=== PATIENT | female | born 1990 | race Caucasian/White ===

== ENCOUNTER 2020-04-24 07:05 | Inpatient (IN) | payer OTHER, SELFPAY ==
[2020-04-24] VITALS (89 sets, daily range): BP systolic 106–139; BP diastolic 49–96; PULSE 58–118; RESP 16; TEMP 36.7–36.8; O2SAT 95–100; BMI 38.0
--- NOTE | 2020-04-24 07:14 | PM.IMHP ---
H&P: HPI History of Present Illness Chief complaint: Induction of Labor Narrative: Ingrid Huerta is a 29 year old female 040 whose last menstrual period was 07/17/2019, whose EDC is 04/22/2020, presents at 40 and half weeks gestation for induction of labor. Her has been uncomplicated. She does take levothyroxine as an been euthyroid throughout the . Cervix is favorable. Her blood pressures have been mildly elevated at the end of Review of Systems Review of Systems: All systems reviewed & are unremarkable except as noted in HPI and below PMFSH Family History Family History Grandparent Bone cancer Diabetes mellitus Carcinoid tumor of stomach Social History Social History Substance use: never Spiritual care concerns: No Meds Home Medications and Allergies Home Medications Medication Instructions Recorded Confirmed Type PNV cmb#95-ferrous fumarate-FA 1 tablet PO DAILY 03/25/20 03/25/20 History [] levothyroxine 50 mcg PO DAILY 03/25/20 03/25/20 History Allergies Allergy/AdvReac Type Severity Reaction Status Date / Time Penicillins Allergy Unknown HIVES Verified 03/25/20 14:36 Exam Const: General: no acute distress Eyes: General: appearance normal, both eyes and all related structures Neck: Neck: supple and no JVD Thyroid: thyroid normal Resp: Effort & Inspection: normal respiratory effort Auscultation: clear to auscultation bilaterally Cardio: Rate: regular rate Rhythm: regular rhythm GI: Inspection: non-distended GI Palp: Yes Soft to palpation, No Tenderness to palpation present (GI) and No Guarding due to palpation present (GI) Auscultation: normal bowel sounds : General: Yes bladder normal to palpation External Female Exam: normal external appearance Speculum Exam - Vagina: normal vaginal discharge and No vaginal bleeding Speculum Exam - Cervix: nontender Bimanual exam- vagina & uterus: bladder normal to palpation and No Cervical tenderness present OB/external & speculum: No vaginal bleeding Skin: General skin exam: no rashes or lesions noted Extrem: General: normal to inspection and no edema Psych: Mental Status: mental status grossly normal Affect: normal affect Assessment and Plan Additional Plan Impression: Term with favorable cervix Plan medical induction of labor
--- NOTE | 2020-04-24 07:29 | WPDOBADMIT ---
Obstetrics - Admit Note Admission Note: record reviewed. No pertinent additions to the history and/or any subsequent changes in the physical findings that are not consistent with the expected course of the were found. Additions to the history and/or subsequent changes in the physical findings follow. None. cx /-1 arom clear fhts reassuring
[2020-04-24] MEDS: LACTATED RINGERS 1,000 ML 125 ML IV CONT ×3 (07:55→13:03)
[2020-04-24] MEDS: OXYTOCIN 30 UNITS/NS 500 ML 30 UNITS/500 ML BAG 6 UNITS IV CONT ×2 (07:58→17:55)
[2020-04-24 08:02] LABS: Basophils Percent Auto 0.3 % (0.2-1.2); Eosinophils Absolute Auto 0.1 K/mm3 (0-0.3); Eosinophils Percent Auto 0.6 % (0-4.4); Hematocrit 40.8 % (37.0-47.0); Hemoglobin 13.6 g/dL (12.0-15.0); Immature Granulocyte Absolute 0.07 K/mm3 (0.00-0.031); Immature Granulocyte Percent A 0.6 % (0-0.5); Lymphocytes Absolute Auto 1.71 K/mm3 (0.9-3.2); Lymphocytes Percent Auto 14.5 % (18.3-44.2); Mean Corpuscular HGB Conc 33.3 g/dl (32-36); Mean Corpuscular Hemoglobin 30.8 pg (26-34); Mean Corpuscular Volume 92.3 fl (80-100); Mean Platelet Volume 9.9 fl (7.4-10.4); Monocytes Absolute Auto 0.8 K/mm3 (0.1-0.6); Monocytes Percent Auto 6.8 % (2.6-8.5); Neutrophils Absolute Auto 9.1 K/mm3 (1.3-6.7); Neutrophils Percent Auto 77.2 % (45.5-73.1); Platelet Count Result 303 k/mm3 (150-375); Red Blood Count 4.42 M/mm3 (4.2-5.4); Red Cell Distribution Width 12.7 % (11.5-14.5); White Blood Count 11.8 K/mm3 (4.5-10.0)
[2020-04-24] MEDS: CLINDAMYCIN 900 MG/NS 50 ML 900 MG/50 ML PIGGYBACK 50 MG IVPB ×2 (08:52→16:34)
[2020-04-24 10:24] LABS: Rapid Plasma Reagin Non-Reactive (NonReactive)
--- NOTE | 2020-04-24 11:58 | PM.OBPNVD ---
OB - PN: Subj Subjective Date/time seen: 04/24/20 11:58 fhts reassuring requsting epidural OB - PN: Obj Data Labs CBC & Chem 7: 04/24/20 07:51 Labs: Laboratory Results - last 24 hr 04/24/20 04/24/20 04/24/20 07:51 07:51 07:51 WBC 11.8 H RBC 4.42 Hgb 13.6 Hct 40.8 MCV 92.3 MCH 30.8 MCHC 33.3 RDW 12.7 Plt Count 303 MPV 9.9 Immature Gran % (Auto) 0.6 H Neut % (Auto) 77.2 H Lymph % (Auto) 14.5 L [place] % (Auto) 6.8 Eos % (Auto) 0.6 Baso % (Auto) 0.3 Lymph # (Auto) 1.71 [place] # (Auto) 0.8 H Eos # (Auto) 0.1 Baso # (Auto) 0.0 Abs Immat Gran (auto) 0.07 H Absolute Neuts (auto) 9.1 H Absolute Nucleated RBC 0.0 Nucleated RBC % 0.0 RPR Non-reactive Blood Type B Positive Antibody Screen Negative OB - PN A/P Time Spent With Patient Time: Total time spent is greater than 50% in coordination of care (as documented) at patient's floor/unit and/or counseling patient:
--- NOTE | 2020-04-24 12:36 | WPDANESEPPF ---
Anes - Initial Pre Proc Eval Date/Time: 04/24/20 12:36 Surgeon: Lennox Matt MD Pre Op Diagnosis: Induction of Labor Patient Data Age: 29 Gender: F Height: 1.7 m Weight: 110 kg Last Vital Signs Pulse 73 04/24/20 12:30 BP 128/77 04/24/20 12:30 Pulse Ox 100 04/24/20 12:34 Allergies Allergy/AdvReac Type Severity Reaction Status Date / Time Penicillins Allergy Unknown HIVES Verified 03/25/20 14:36 Home Medications Medication Instructions Recorded Confirmed Type PNV cmb#95-ferrous fumarate-FA 1 tablet PO DAILY 03/25/20 03/25/20 History [] levothyroxine 50 mcg PO DAILY 03/25/20 03/25/20 History Laboratory Tests 04/24/20 04/24/20 04/24/20 07:51 07:51 07:51 WBC 11.8 K/mm3 H K/mm3 (4.5-10.0) RBC 4.42 M/mm3 M/mm3 (4.2-5.4) Hgb 13.6 g/dL g/dL (12.0-15.0) Hct 40.8 % % (37.0-47.0) MCV 92.3 fl fl (80-100) MCH 30.8 pg pg (26-34) MCHC 33.3 g/dl g/dl (32-36) RDW 12.7 % % (11.5-14.5) Plt Count 303 k/mm3 k/mm3 (150-375) MPV 9.9 fl fl (7.4-10.4) Immature Gran % (Auto) 0.6 % H % (0-0.5) Neut % (Auto) 77.2 % H % (45.5-73.1) Lymph % (Auto) 14.5 % L % (18.3-44.2) [place] % (Auto) 6.8 % % (2.6-8.5) Eos % (Auto) 0.6 % % (0-4.4) Baso % (Auto) 0.3 % % (0.2-1.2) Lymph # (Auto) 1.71 K/mm3 K/mm3 (0.9-3.2) [place] # (Auto) 0.8 K/mm3 H K/mm3 (0.1-0.6) Eos # (Auto) 0.1 K/mm3 K/mm3 (0-0.3) Baso # (Auto) 0.0 K/mm3 K/mm3 (0.0-0.1) Abs Immat Gran (auto) 0.07 K/mm3 H K/mm3 (0.00-0.031) Absolute Neuts (auto) 9.1 K/mm3 H K/mm3 (1.3-6.7) Absolute Nucleated RBC 0.0 K/mm3 K/mm3 (0.0-0.012) Nucleated RBC % 0.0 % % (0.0-0.2) RPR Non-reactive (NonReactive) Blood Type B Positive Antibody Screen Negative Patient hx anesthesia problems: none Family hx anesthesia problems: none PMFSH Family History Family History Grandparent Bone cancer Diabetes mellitus Carcinoid tumor of stomach Social History Social History Smoking status: Never smoker Substance use: never Spiritual care concerns: No Anes - Eval Final PreProcedure Day of Procedure 04/24/20 12:36 Patient weight: obese Heart: regular rate and rhythm Lungs: clear to auscultation and normal air movement Airway: Mallampati scale class II Neurological: alert and oriented Last oral intake: >/= 8 hours ASA classification: II Emergent: no Anesthetic plan: proceed Anesthesia type and monitoring: regional epidural Informed Consent: The patient's anesthetic plan and its attendant risks and benefits were discussed with the patient/family/POA. Questions were solicited and answers provided to the satisfaction of the patient/family/POA.
--- NOTE | 2020-04-24 16:21 | PM.OBPNVD ---
OB - PN: Subj Subjective Date/time seen: 04/24/20 16:21 cx complete/fhts reassuring OB - PN: Obj Data Labs CBC & Chem 7: 04/24/20 07:51 Labs: Laboratory Results - last 24 hr 04/24/20 04/24/20 04/24/20 07:51 07:51 07:51 WBC 11.8 H RBC 4.42 Hgb 13.6 Hct 40.8 MCV 92.3 MCH 30.8 MCHC 33.3 RDW 12.7 Plt Count 303 MPV 9.9 Immature Gran % (Auto) 0.6 H Neut % (Auto) 77.2 H Lymph % (Auto) 14.5 L [place] % (Auto) 6.8 Eos % (Auto) 0.6 Baso % (Auto) 0.3 Lymph # (Auto) 1.71 [place] # (Auto) 0.8 H Eos # (Auto) 0.1 Baso # (Auto) 0.0 Abs Immat Gran (auto) 0.07 H Absolute Neuts (auto) 9.1 H Absolute Nucleated RBC 0.0 Nucleated RBC % 0.0 RPR Non-reactive Blood Type B Positive Antibody Screen Negative OB - PN A/P Time Spent With Patient Time: Total time spent is greater than 50% in coordination of care (as documented) at patient's floor/unit and/or counseling patient:
--- NOTE | 2020-04-24 17:46 | PM.OBPRVD ---
OB - Delivery Note Procedure Delivery date: 04/24/20 Intrapartal events: None Induction method: AROM Delivery augmentation: pitocin Delivery monitor: external FHT Route of delivery: Laceration description: Vaginal - 1st Degree Delivery repair: vicryl Specimen: No Estimated blood loss (mL): 57 Anesthesia type: Epidural Disposition: floor Baby Date of : 04/24/20 Time of : 17:36 Weeks of gestation at delivery: 40 gender: Female Weight (pounds): 7 Weight (ounces): 15 presentation: vertex position: Right Occiput Anterior Placenta delivery description: Spontaneous cord vessel description: 3 Vessels, Nuchal Cord and Loose score one minute: 8 score five minutes: 9
[2020-04-25 05:39] LABS: Hematocrit 37.5 % (37.0-47.0); Hemoglobin 12.3 g/dL (12.0-15.0)
--- NOTE | 2020-04-25 06:57 | PM.DS ---
DS: Admitting Diagnosis Admitting Diagnosis Admitting Diagnosis: term iup/gbs DS: Summary Time Spent with Patient Time attestation: Total time spent providing and/or coordinating discharge services: Exam Const: General: no acute distress Eyes: General: appearance normal, both eyes and all related structures Neck: Neck: supple and no JVD Thyroid: thyroid normal Resp: Effort & Inspection: normal respiratory effort Auscultation: clear to auscultation bilaterally Cardio: Rate: regular rate Rhythm: regular rhythm GI: Inspection: non-distended GI Palp: Yes Soft to palpation, No Tenderness to palpation present (GI) and No Guarding due to palpation present (GI) Auscultation: normal bowel sounds : General: Yes bladder normal to palpation External Female Exam: normal external appearance Speculum Exam - Vagina: normal vaginal discharge and No vaginal bleeding Speculum Exam - Cervix: nontender Bimanual exam- vagina & uterus: bladder normal to palpation and No Cervical tenderness present OB/external & speculum: No vaginal bleeding Skin: General skin exam: no rashes or lesions noted Extrem: General: normal to inspection and no edema Psych: Mental Status: mental status grossly normal Affect: normal affect DS: Data Data Completed and Pending Labs on day of discharge: Labs from last 24 hours 04/25/20 04/24/20 04/24/20 04:42 07:51 07:51 WBC RBC Hgb 12.3 Hct 37.5 MCV MCH MCHC RDW Plt Count MPV Immature Gran % (Auto) Neut % (Auto) Lymph % (Auto) [place] % (Auto) Eos % (Auto) Baso % (Auto) Lymph # (Auto) [place] # (Auto) Eos # (Auto) Baso # (Auto) Abs Immat Gran (auto) Absolute Neuts (auto) Absolute Nucleated RBC Nucleated RBC % RPR Non-reactive Blood Type B Positive Antibody Screen Negative 04/24/20 07:51 WBC 11.8 H RBC 4.42 Hgb 13.6 Hct 40.8 MCV 92.3 MCH 30.8 MCHC 33.3 RDW 12.7 Plt Count 303 MPV 9.9 Immature Gran % (Auto) 0.6 H Neut % (Auto) 77.2 H Lymph % (Auto) 14.5 L [place] % (Auto) 6.8 Eos % (Auto) 0.6 Baso % (Auto) 0.3 Lymph # (Auto) 1.71 [place] # (Auto) 0.8 H Eos # (Auto) 0.1 Baso # (Auto) 0.0 Abs Immat Gran (auto) 0.07 H Absolute Neuts (auto) 9.1 H Absolute Nucleated RBC 0.0 Nucleated RBC % 0.0 RPR Blood Type Antibody Screen Discharge Plan Discharge Attending physician on discharge: Lennox Matt Consulting providers: Alexi Herring Discharging Clinician: Lennox Matt Patient Disposition: Home, Self-Care Activity: may shower, no straining, may drive after 2 weeks and pelvic rest Diet: regular Patient Instructions: Antibiotic Form Stand Alone Forms: General Discharge Information Follow-up/Referrals: Lennox Matt MD [Physician] - Discharge Medications: Continued levothyroxine 50 mcg Capsule 50 mcg PO DAILY RF: 0 PNV cmb#95-ferrous fumarate-FA [] 28 mg iron- 800 mcg Tablet 1 tablet PO DAILY RF: 0 Date of admission: 04/24/20 07:05 Primary Care Provider: PHYSICIAN,LEAD SOFTWARE ENGINEER Admitting Provider: Lennox Matt Attending physician on admission: Lennox Matt
--- NOTE | 2020-04-25 06:57 | PM.OBPNVD ---
OB - PN: Subj Subjective Date/time seen: 04/25/20 06:57 Patient comments: no complaints and pain well controlled baby status: doing well and nursing well OB - PN: Obj Data Labs CBC & Chem 7: 04/25/20 04:42 Labs: Laboratory Results - last 24 hr 04/24/20 04/24/20 04/24/20 07:51 07:51 07:51 WBC 11.8 H RBC 4.42 Hgb 13.6 Hct 40.8 MCV 92.3 MCH 30.8 MCHC 33.3 RDW 12.7 Plt Count 303 MPV 9.9 Immature Gran % (Auto) 0.6 H Neut % (Auto) 77.2 H Lymph % (Auto) 14.5 L [place] % (Auto) 6.8 Eos % (Auto) 0.6 Baso % (Auto) 0.3 Lymph # (Auto) 1.71 [place] # (Auto) 0.8 H Eos # (Auto) 0.1 Baso # (Auto) 0.0 Abs Immat Gran (auto) 0.07 H Absolute Neuts (auto) 9.1 H Absolute Nucleated RBC 0.0 Nucleated RBC % 0.0 RPR Non-reactive Blood Type B Positive Antibody Screen Negative 04/25/20 04:42 WBC RBC Hgb 12.3 Hct 37.5 MCV MCH MCHC RDW Plt Count MPV Immature Gran % (Auto) Neut % (Auto) Lymph % (Auto) [place] % (Auto) Eos % (Auto) Baso % (Auto) Lymph # (Auto) [place] # (Auto) Eos # (Auto) Baso # (Auto) Abs Immat Gran (auto) Absolute Neuts (auto) Absolute Nucleated RBC Nucleated RBC % RPR Blood Type Antibody Screen OB - PN A/P Plan day: 1 Plan: routine care Time Spent With Patient Time: Total time spent is greater than 50% in coordination of care (as documented) at patient's floor/unit and/or counseling patient: Time with patient: less than 15 minutes Review of Systems Review of Systems: All systems reviewed & are unremarkable except as noted in HPI and below Exam Const: General: no acute distress Eyes: General: appearance normal, both eyes and all related structures Neck: Neck: supple and no JVD Thyroid: thyroid normal Resp: Effort & Inspection: normal respiratory effort Auscultation: clear to auscultation bilaterally Cardio: Rate: regular rate Rhythm: regular rhythm GI: Inspection: non-distended GI Palp: Yes Soft to palpation, No Tenderness to palpation present (GI) and No Guarding due to palpation present (GI) Auscultation: normal bowel sounds : General: Yes bladder normal to palpation External Female Exam: normal external appearance Speculum Exam - Vagina: normal vaginal discharge and No vaginal bleeding Speculum Exam - Cervix: nontender Bimanual exam- vagina & uterus: bladder normal to palpation and No Cervical tenderness present OB/external & speculum: No vaginal bleeding Skin: General skin exam: no rashes or lesions noted Extrem: General: normal to inspection and no edema Psych: Mental Status: mental status grossly normal Affect: normal affect
[2020-04-25 07:50] VITALS: BP 120/65; PULSE 79; RESP 16; TEMP 36.9; O2SAT 100
[2020-04-25] MEDS: IBUPROFEN 600 MG TABLET PO (08:11)
[2020-04-25] MEDS: MULTIVIT/MIN/PREN/FOL AC/IRON TABLET 1 TAB PO (08:11)
--- NOTE | 2020-04-25 14:22 | WPDANLDPN2 ---
Anes-Prog Note L&D Date/Time: 04/25/20 14:22 Comfortable throughout: labor and delivery Neuraxial method: epidural Epidural/Spinal procedure site: clean & non-tender Neuro status: Neuro function grossly intact. Cardiovascular status: normal Respiratory status: normal Airway patency: baseline Mental status: baseline Post-Op hydration status: normal Vital Signs: Last Vital Signs Temp 98.5 F 04/25/20 07:50 Pulse 79 04/25/20 07:50 Resp 16 04/25/20 07:50 BP 120/65 04/25/20 07:50 Pulse Ox 100 04/25/20 07:50 I/O: Intake & Output 04/24/20 04/25/20 04/25/20 23:59 07:59 15:59 Intake Total 500 Balance 500 Post-procedural complaints: none Patient feedback: Patient satisfied with anesthetic care.
--- NOTE | 2020-04-25 14:30 | PC.NURSE ---
Mother called out for assist with feeding. Mother reports infant will easily stimulate to wake every 2-3 hours. Mother is latching without assist reporting minimal tenderness. Reviewed feeding cues, frequencies, duration of feedings, feeding elimination flow sheet, and signs of adequate intake. Reviewed positioning/alignment in cross cradle, holding breast in U hold and guided asymmetrical latch on. Discussed rational for each. was able to latch correctly. nursed eagerly, with steady draws and frequent swallowing noted. Reviewed signs of a correct latch, effective nursing and suck swallow ratio. was able to maintain latch without discomfort to mother. Nipple care reviewed. would pull back during feedings, mother reports slight tenderness with infant draws back. Demonstrated how to adjust latch more deeply while feeding and to give gentle resistance when infant begins to pull back. Mother was able to correct latch, reporting no discomfort. Mother voiced understanding of information shared. Mother wishes to be discharged today. Mother is feeding as required and waking to feed if needed. Infant has had several effective feedings in the past 24 hours, and is currently meeting outcomes for weight, output, jaundice and feeding frequencies. Mother states she feels confident to continue effective at home. Reviewed transition to breast milk, signs of adequate intake, and engorgement/relief. Instructed to call ICP if intake/output less than required. Reviewed regular medications mother is taking. Information provided per Sherlyn. Reviewed community resources on the [employer] website and in the Mom/Baby guide. Information on outpatient services provided. Mother has no further questions at this time.
[2020-04-26 08:53] VITALS: BP 120/70; PULSE 79; RESP 20; TEMP 36.6; O2SAT 98
== END 2020-04-25 19:27 | disposition home or self-care (01) | DRG 807 ==
LOC: ANHLDR 07:08 → ANHOB2 21:04
PROVIDERS: Admitting Provider Obstetrics & Gynecology; Visit Provider Obstetrics & Gynecology
DX: O99.824 Streptococcus B carrier state complicating childbirth (principal); Z37.0 Single live birth; Z3A.40 40 weeks gestation of pregnancy; O36.8330 Maternal care for abnormalities of the fetal heart rate or rhythm, third trimester, not applicable or unspecified; O70.0 First degree perineal laceration during delivery; O99.214 Obesity complicating childbirth; E66.9 Obesity, unspecified; O69.81X0 Labor and delivery complicated by cord around neck, without compression, not applicable or unspecified
CPT/HCPCS: 36415; 85014; 85018; 85025; 86592; 86850; 86900; 86901; A9270; J2590; J2795; J7120

== ENCOUNTER 2020-08-12 11:32 | Emergency (ER) | payer OTHER, SELFPAY ==
[2020-08-12 11:43] VITALS: BP 122/69; PULSE 85; RESP 14; TEMP 36.6; O2SAT 100
[2020-08-12 11:51] VITALS: BP 122/69; PULSE 85; RESP 14; TEMP 36.6; O2SAT 100
--- NOTE | 2020-08-12 12:21 | ED.SKABFB ---
HPI - Skin/Abscess/Foreign Bdy General Chief complaint: Skin/Abscess/Foreign Body Stated complaint: rash on face/head Time Seen by Provider: 08/12/20 12:21 Source: patient and RN notes reviewed Mode of arrival: ambulatory Limitations: no limitations History of Present Illness HPI narrative: 30 year old female who presents to express care with rash to her forehead, hairline, corner of right eye and on right upper eyelid near brow since Wednesday only located on right side of face. Patient states that areas are itchy and tender to touch, rash is blistery looking with no fluid noted. Patient denies any change in her vision or any acute eye pain. Patient states that right side of neck also feels swollen with no sore throat, nasal drainage, or fevers. MD complaint: rash Onset (ago): day(s) (since wednesday) Tetanus up to date: yes Location: head and face Severity: mild Severity scale (1-10): 3 Quality: pruritic and other (soreness) Treatments prior to arrival: none Related Data Home Medications Medication Instructions Recorded Confirmed levothyroxine 50 mcg PO DAILY 03/25/20 08/12/20 sertraline 50 mg PO DAILY 08/12/20 08/12/20 Allergies Allergy/AdvReac Type Severity Reaction Status Date / Time Penicillins Allergy Unknown HIVES Verified 08/12/20 11:50 Review of Systems Review of Systems: Narrative: CONSTITUTIONAL: Denies fever, chills, or sweats. EYES: Denies visual changes, redness, or discharge. ENT: Denies rhinorrhea, congestion, sore throat, or otalgia. CARDIOVASCULAR: Denies chest pain, palpitations, or edema. RESPIRATORY: Denies cough or dyspnea. GASTROINTESTINAL: Denies abdominal pain, nausea, vomiting, or diarrhea. GENITOURINARY: Denies dysuria or hematuria. SKIN: Positive rash with itching and soreness of rash on on right side of forearm and corner of right eye and right eyelid. MUSCULOSKELETAL: Denies back pain, joint pain, or myalgia. NEUROLOGIC: Denies headache, numbness, or weakness. PSYCHIATRIC: Positive history of anxiety or depression. All systems reviewed & are unremarkable except as noted in HPI and below PMFSH Past Medical History Medical History (Updated 08/15/20 @ 08:40 by Kenna De Leon NP) Anxiety Asthma due to environmental allergies Hypothyroid UTI (urinary tract infection) Surgical History Surgical History (Updated 08/15/20 @ 08:40 by Kenna De Leon NP) History of dilatation and curettage Family History Family History Grandparent Bone cancer Diabetes mellitus Carcinoid tumor of stomach Social History Social History (Updated 08/15/20 @ 08:40 by Kenna De Leon NP) Smoking status: Never smoker Alcohol intake: current Substance use: never Living arrangements: with family Gender identity (if verbalized by the patient): Female Spiritual care concerns: No Comments At time of signature, agree with nursing past medical, surgical, social and family history. There is no relevant family history pertinent to the presenting complaint Exam Narrative: Exam Narrative: GENERAL: Well-appearing, well-nourished, and in no acute distress. HEAD: Normocephalic, atraumatic. EYES: PERRLA and EOMI.denies any acute pain to eye or any visual changed ENT: Nares clear, no rhinorrhea or epistaxis. Mucous membranes moist.TM's normal with good light reflex, throat pink with no exudates or tonsil enlargement NECK: Supple.no lymphadenopathy CHEST: Clear to auscultation. No respiratory distress.SAO2 100% on room air HEART: Regular rate and rhythm. No murmur heard. Normal peripheral pulses. ABDOMEN: Soft, nontender, nondistended, normal active bowel sounds. EXTREMITIES: Normal range of motion. No edema. SKIN: Warm, dry, red raised blistery looking rash to right forehead and along hairline, right side of eye and on right eyelid.Patient reports itching and discomfort to rash. NEURO: No focal deficits. Alert and oriented x3. Course Vital Sig
== END 2020-08-12 12:57 | disposition home or self-care (01) ==
PROVIDERS: Emergency Provider Registered Nurse
DX: B02.39 Other herpes zoster eye disease (principal); B02.9 Zoster without complications; F41.9 Anxiety disorder, unspecified; J45.909 Unspecified asthma, uncomplicated; E03.9 Hypothyroidism, unspecified
CPT/HCPCS: 99213; G0463

== ENCOUNTER 2023-07-25 11:31 | Inpatient (IN) | payer OTHER, SELFPAY ==
[2023-07-25] VITALS (143 sets, daily range): BP systolic 97–184; BP diastolic 35–119; PULSE 56–208; RESP 16; TEMP 36.6–37.4; O2SAT 79–100; BMI 38.2
[2023-07-25 12:16] LABS: Basophils Percent Auto 0.2 % (0.2-1.2); Eosinophils Absolute Auto 0.1 K/mm3 (0-0.3); Hemoglobin 12.1 g/dL (12.0-15.0); Immature Granulocyte Absolute 0.04 K/mm3 (0.00-0.031); Immature Granulocyte Percent A 0.4 % (0-0.5); Lymphocytes Absolute Auto 1.84 K/mm3 (0.9-3.2); Lymphocytes Percent Auto 18.1 % (18.3-44.2); Mean Corpuscular HGB Conc 32.7 g/dl (32-36); Mean Corpuscular Hemoglobin 28.6 pg (26-34); Mean Corpuscular Volume 87.5 fl (80-100); Mean Platelet Volume 9.7 fl (7.4-10.4); Monocytes Absolute Auto 0.8 K/mm3 (0.1-0.6); Neutrophils Absolute Auto 7.4 K/mm3 (1.3-6.7); Neutrophils Percent Auto 72.3 % (45.5-73.1); Platelet Count Result 310 k/mm3 (150-375); Red Blood Count 4.23 M/mm3 (4.2-5.4); Red Cell Distribution Width 14.1 % (11.5-14.5); White Blood Count 10.2 K/mm3 (4.5-10.0)
[2023-07-25] MEDS: ceFAZolin 2 GM/D5W 50 ML 2 GM/50 ML BAG 100 GM (12:27)
--- NOTE | 2023-07-25 12:37 | LDADM ---
This patient, Ingrid Huerta, was admitted to Labor/Delivery/Recovery 105 on 07/25/23 at 11:31. Plans for labor, pain management and were discussed with patient. Patient/family oriented to hospital policies and general routines including ID bracelet, bed and alarms, visiting hours, pain management, procedures, bathroom and other care routines, personal items, smoking policy, room service/diet and guest tray routines, infant security routines, and visiting hours. Patient/Family are encouraged to report perceived risks to care and to ask questions if they do not understand what they are told or what they should do. See [facility]BI[facility] for further documentation.
[2023-07-25] MEDS: ONDANSETRON INJ 4 MG/2 ML VIAL IV PUSH (12:51)
[2023-07-25] MEDS: fentaNYL CITRATE INJ (*CRX) 100 MCG/2 ML VIAL IV PUSH ×2 (12:52→18:44)
[2023-07-25] MEDS: LACTATED RINGERS 1,000 ML 999 ML IV CONT ×3 (12:55→18:36)
--- NOTE | 2023-07-25 13:23 | WPDANESEPP ---
Anes - Eval Pre Procedure Procedure: labor epidural Date/Time: 07/25/23 13:23 Surgeon: Candace Delcid Preop Diagnosis: Pain during labor Pre Op Diagnosis: Labor Patient Data Age: 33 Gender: F Height: 1.68 m Weight: 107.3 kg Last Vital Signs Temp 36.6 C 07/25/23 12:59 Pulse 67 07/25/23 13:16 BP 135/73 07/25/23 13:16 O2 Del Method Room Air 07/25/23 12:36 Allergies Allergy/AdvReac Type Severity Reaction Status Date / Time Penicillins Allergy Unknown HIVES Verified 06/19/23 13:25 Home Medications Medication Instructions Recorded Confirmed Type vit#24-iron amino acid 1 tablet PO DAILY 06/19/23 07/25/23 History chelat-folic acid 30 mg-975 mcg tablet Laboratory Tests 07/25/23 12:10 WBC 10.2 H K/mm3 (4.5-10.0) RBC 4.23 M/mm3 (4.2-5.4) Hgb 12.1 g/dL (12.0-15.0) Hct 37.0 % (37.0-47.0) MCV 87.5 fl (80-100) MCH 28.6 pg (26-34) MCHC 32.7 g/dl (32-36) RDW 14.1 % (11.5-14.5) Plt Count 310 k/mm3 (150-375) MPV 9.7 fl (7.4-10.4) Immature Gran % (Auto) 0.4 % (0-0.5) Neut % (Auto) 72.3 % (45.5-73.1) Lymph % (Auto) 18.1 L % (18.3-44.2) [place] % (Auto) 8.0 % (2.6-8.5) Eos % (Auto) 1.0 % (0-4.4) Baso % (Auto) 0.2 % (0.2-1.2) Lymph # (Auto) 1.84 K/mm3 (0.9-3.2) [place] # (Auto) 0.8 H K/mm3 (0.1-0.6) Eos # (Auto) 0.1 K/mm3 (0-0.3) Baso # (Auto) 0.0 K/mm3 (0.0-0.1) Abs Immat Gran (auto) 0.04 H K/mm3 (0.00-0.031) Absolute Neuts (auto) 7.4 H K/mm3 (1.3-6.7) Absolute Nucleated RBC 0.0 K/mm3 (0.0-0.012) Nucleated RBC % 0.0 % (0.0-0.2) RPR Pending Patient hx anesthesia problems: none Family hx anesthesia problems: none Prior surgeries: D&C Results Review: All pre-operative results and documents have been reviewed as part of the pre-operative evaluation. [facility] Past Medical History Medical History Anxiety Asthma due to environmental allergies Hypothyroid UTI (urinary tract infection) Surgical History Surgical History History of dilatation and curettage Family History Family History Grandparent Diabetes mellitus Bone cancer Carcinoid tumor of stomach Grandparent Cataract Social History Social History Smoking status: Never smoker Second hand tobacco smoke exposure: No Alcohol intake: current Substance use: never Lack of Transportation: No Lack of Food: Never True Current Housing: I Have Housing Concerned About Future Housing: No Difficulty Paying Gas/Electric Bills: No Difficulty Paying for Meds: No Currently Unemployed: No Education: Associate Degree Difficulty w/ Childcare or Family Care: No Living arrangements: with family Gender identity (if verbalized by the patient): Female Spiritual care concerns: No Exam Day of Procedure 07/25/23 13:23 Patient weight: obese Heart: regular rate and rhythm Lungs: normal air movement Airway: Mallampati scale class II Neurological: alert and oriented
[2023-07-25] MEDS: OXYTOCIN 30 UNITS/NS 500 ML 30 UNITS/500 ML BAG 999 UNITS IV CONT (15:10)
--- NOTE | 2023-07-25 15:23 | WPDOBADMIT ---
Obstetrics - Admit Note Admission Note: record reviewed. Additions to the history and/or subsequent changes in the physical findings follow. 33 y/o at 40 5/7 weeks here with contractions. GBS pos. uncomplicated. Now comfortable with epidural. AVSS NST reactive TOCO: contractions every 3-5 min ABD soft, nontender, gravid, vertex EXT nontender Cervix 5 cm on admission, complete at time of my arrival. SROM with clear fluid here in labor. A: IUP at term with labor. GBS pos. P: Ancef. See delivery note.
--- NOTE | 2023-07-25 15:26 | P.PCNOB_ITS ---
OB - Delivery Note Procedure Delivery date: 07/25/23 Procedure: Events: Positive Group B Strep (GBS) Induction method: None Delivery monitor: External FHT and External Uterine Route of delivery: Laceration Description: Periurethral Specimen: Yes (cord blood) Quantitative Blood Loss (ml): 220 Anesthesia type: Epidural Disposition: PACU Complications: None Narrative: 33 y/o at 40 5/7 weeks gestation who presented to the hospital with contractions. Labor was diagnosed. She was given Ancef for GBS colonization. She received an epidural for pain control. Her labor progressed and her cervix dilated completely. She pushed with good effort and delivered the 's head to the perineum, followed by the body. The nose and mouth were bulb suctioned. After a delay, the cord was clamped and cut. The infant was handed off the field. Cord blood was collected. The placenta delivered spontaneously and was grossly normal in appearance. The usual 3 vessel cord was noted. Shallow bilateral periurethral lacerations were noted, but did not require repair. Needle and instrument counts were correct. The patient was taken to recovery room in stable condition. The infant went to the nursery in stable condition. I was present and scrubbed for the entire delivery. [place] Baby Date of : 07/25/23 Time of : 15:08 Weeks of gestation at delivery: 40 Infant gender: Female Weight (pounds): 7 Weight (ounces): 13 presentation: vertex position: Left Occiput Anterior Placenta delivery description: Spontaneous and Normal Configuration Cord Vessel Description: 3 Vessels and Delayed Cord Clamping score one minute: 8 score five minutes: 9
--- NOTE | 2023-07-25 15:31 | PM.OBDSVD ---
DS: Admitting Diagnosis Discharge Date 07/27/23 Admitting Diagnosis IUP at 40 5/7 weeks Labor GBS colonization DS: Discharge Diagnosis Discharge Diagnosis (1) (normal spontaneous vaginal delivery): Code(s): O80 - Encounter for full-term uncomplicated delivery Status: Acute (2) GBS (group B Streptococcus carrier), +RV culture, currently : Code(s): O99.820 - Streptococcus B carrier state complicating Status: Acute OB - DS: Summary OB Procedures : None OB Procedures Intrapartum: Spontaneous Vag Delivery OB Procedures: : None Time Spent with Patient Time attestation: Total time spent providing and/or coordinating discharge services: DS: Data Data Completed and Pending Labs on day of discharge: Labs from last 24 hours 07/25/23 12:10 WBC 10.2 H RBC 4.23 Hgb 12.1 Hct 37.0 MCV 87.5 MCH 28.6 MCHC 32.7 RDW 14.1 Plt Count 310 MPV 9.7 Immature Gran % (Auto) 0.4 Neut % (Auto) 72.3 Lymph % (Auto) 18.1 L [place] % (Auto) 8.0 Eos % (Auto) 1.0 Baso % (Auto) 0.2 Lymph # (Auto) 1.84 [place] # (Auto) 0.8 H Eos # (Auto) 0.1 Baso # (Auto) 0.0 Abs Immat Gran (auto) 0.04 H Absolute Neuts (auto) 7.4 H Absolute Nucleated RBC 0.0 Nucleated RBC % 0.0 RPR Pending Blood Type B Positive Antibody Screen Negative Discharge Plan Discharge Attending physician on discharge: Lennox Weiss Consulting providers: Cameron Jenkins; Rio Curtis Discharging Clinician: Lennox Weiss Patient Disposition: Home, Self-Care Activity: pelvic rest Diet: regular Discharge Instructions: Education: Mom and Baby Guide Given to: Mother Follow-Up: Call your delivering provider's office for an appointment to be seen in: 6 Weeks Mom and baby should come to the [facility] for the follow-up appointment. Appointment Date/Time: Friday, July 28, 2023 at 3:30 pm What to expect at your follow-up visit: Physical Assessment Call [phone] if you are unable to keep your appointment time. BREAST CARE: * Wear a snug supportive bra. * For engorgement discomfort: Bottle Feeding: * May apply ice packs PERINEAL CARE: * Until bleeding stops, use your nancy bottle after urinating * Change your pad frequently throughout the day * You may take sitz baths several times a day (fill your bathtub with warm water and soak for 20 minutes.) Do NOT bathe in the water * No tub baths until seen by your physician - You may shower ACTIVITY: * Rest as much as possible. * Do not exercise or lift anything heavier than your baby (such as laundry or other children.) * Avoid stairs or driving as much as possible. * Do not put anything into the vagina. No douching, tampons, or sexual activity until seen by physician. NOTIFY PHYSICIAN IF YOU HAVE ANY QUESTIONS OR IF ANY OF THE FOLLOWING SYMPTOMS OCCUR: * If your episiotomy or incision becomes red, swollen, or more painful than what you have experienced in the hospital. * If your vaginal bleeding becomes foul smelling. * If your vaginal bleeding becomes more heavy than a period or if your bleeding changes from pink to bright red. However, you may pass an occasional walnut-sized clot once or twice for the first week . * If you experience a sharp, shooting pain in you calves. * If you discover a hard, reddened area on your breast or if you experience flu-like symptoms. DIET: * Eat regular, well-balanced meals. * Drink plenty of fluids daily. If , drink to thirst. Per Dr. Candace Delcid, Call or return if temperature above 100.4? F, increased abdominal pain, increased vaginal bleeding or any new problems. Follow-up/Referrals: Lennox Weiss MD [Physician] - 6 Weeks Discharge Medications: New ibuprofen 600 mg tablet 600 mg PO Q6H PRN (Reason: cramps) Qty: 30 0RF Continued PNV [id number]
[2023-07-25] MEDS: OXYTOCIN 30 UNITS/NS 500 ML 30 UNITS/500 ML BAG 125 UNITS IV CONT (15:43)
[2023-07-25] MEDS: IBUPROFEN 600 MG TABLET PO (17:19)
[2023-07-25] MEDS: WITCH HAZEL 40 PADS 1 PAD TOPICAL (17:20)
[2023-07-25] MEDS: BENZOCAINE 20% AER SPR (*SP) 56 GM CAN 1 SPRAY TOPICAL (17:20)
[2023-07-25] MEDS: miSOPROStol 200 MCG TABLET 1000 MCG RECTAL (18:38)
[2023-07-25] MEDS: TRANEXAMIC ACID 1,000 MG/10 ML AMPUL 1000 MG IV PUSH (19:01)
[2023-07-25 19:33] LABS: Basophils Percent Auto 0.2 % (0.2-1.2); Hematocrit 35.2 % (37.0-47.0); Hemoglobin 11.1 g/dL (12.0-15.0); Immature Granulocyte Absolute 0.08 K/mm3 (0.00-0.031); Immature Granulocyte Percent A 0.4 % (0-0.5); Lymphocytes Absolute Auto 1.12 K/mm3 (0.9-3.2); Lymphocytes Percent Auto 5.7 % (18.3-44.2); Mean Corpuscular HGB Conc 31.5 g/dl (32-36); Mean Corpuscular Hemoglobin 28.2 pg (26-34); Mean Corpuscular Volume 89.3 fl (80-100); Mean Platelet Volume 10.3 fl (7.4-10.4); Monocytes Absolute Auto 0.8 K/mm3 (0.1-0.6); Monocytes Percent Auto 4.1 % (2.6-8.5); Neutrophils Absolute Auto 17.7 K/mm3 (1.3-6.7); Neutrophils Percent Auto 89.6 % (45.5-73.1); Platelet Count Result 334 k/mm3 (150-375); Red Blood Count 3.94 M/mm3 (4.2-5.4); White Blood Count 19.7 K/mm3 (4.5-10.0)
[2023-07-25 19:43] LABS: Alanine Aminotransferase 14 U/L (6-35); Albumin Level 3.1 g/dL (3.5-5.1); Alkaline Phosphatase 231 U/L (38-126); Anion Gap 6 mmol/L (8-16); Aspartate Amino Transferase 28 U/L (14-36); Bilirubin,Total 0.6 mg/dL (0.2-1.3); Blood Urea Nitrogen 9 mg/dL (7-17); Calcium 8.3 mg/dL (8.4-10.2); Carbon Dioxide 20 mmol/L (22-30); Chloride 106 mmol/L (98-107); Estimated CRCL calculation 139 ml/min; Estimated Glomerular Filt Rate > 60; Glucose 116 mg/dL (65-110); Potassium 3.6 mmol/L (3.4-5.0); Sodium 132 mmol/L (137-145)
[2023-07-25 19:46] LABS: INR 1.1; Prothrombin Time 14.4 Seconds (11.1-14.7)
[2023-07-25 19:47] LABS: Fibrinogen 463 mg/dl (215-510); Partial Thromboplastin Time 25.5 SECONDS (22.3-36.8)
[2023-07-25 19:58] LABS: D Dimer 5.02 ug/mL (<0.48)
--- NOTE | 2023-07-25 21:38 | P.PNOB_ITS ---
OB - PN: Subj Subjective Date/time seen: 07/25/23 21:38 Narrative: Called to see patient after several large gushes of blood. Total QBL 2500 mL. She was given oxytocin, methergine 0.2 mg IM x 1, and Cytotec 1000mcg pr. She feels cramping, but no additional pain. Not lightheaded. No chest pain or shortness of breath. AVSS. BP 123/79 HR 89. UO adequate ABD soft, nontender, fundus firm and below umbilicus. Transabd ultrasound showed an empty uterine fundus, with some echogenic material just at the cervix EXT nontender Pelvic exam: Vagina inspected. No bleeding lacerations. No cervical lacerations. Organized clot noted at the cervical os. This was removed digitally and using a ring forceps. The ultrasound exam appeared normal afterward. Hgb immediately after the main bleeding episode returned at 11.1. A: hemorrhage, seems stable now. P: Continue to observe. Go ahead with transfusion of 1 unit PRBC, and check hgb in am. OB - PN: Obj Data Labs 07/25/23 19:00 07/25/23 19:00 Labs: Laboratory Results - last 24 hr 07/25/23 07/25/23 12:10 19:00 WBC 10.2 H 19.7 H RBC 4.23 3.94 L Hgb 12.1 11.1 L Hct 37.0 35.2 L MCV 87.5 89.3 MCH 28.6 28.2 MCHC 32.7 31.5 L RDW 14.1 14.0 Plt Count 310 334 MPV 9.7 10.3 Immature Gran % (Auto) 0.4 0.4 Neut % (Auto) 72.3 89.6 H Lymph % (Auto) 18.1 L 5.7 L [place] % (Auto) 8.0 4.1 Eos % (Auto) 1.0 0.0 Baso % (Auto) 0.2 0.2 Lymph # (Auto) 1.84 1.12 [place] # (Auto) 0.8 H 0.8 H Eos # (Auto) 0.1 0.0 Baso # (Auto) 0.0 0.0 Abs Immat Gran (auto) 0.04 H 0.08 H Absolute Neuts (auto) 7.4 H 17.7 H Absolute Nucleated RBC 0.0 0.0 Nucleated RBC % 0.0 0.0 PT 14.4 INR 1.1 APTT 25.5 Fibrinogen 463 D-Dimer 5.02 H Sodium 132 L Potassium 3.6 Chloride 106 Carbon Dioxide 20 L Anion Gap 6 L BUN 9 Creatinine 0.60 L Estim Creat Clear Calc 139 Estimated GFR > 60 Glucose 116 H Calcium 8.3 L Total Bilirubin 0.6 AST 28 ALT 14 Alkaline Phosphatase 231 H Total Protein 6.0 L Albumin 3.1 L Blood Type B Positive Antibody Screen Negative Crossmatch See Detail
[2023-07-26 02:20] VITALS: BP 108/67; PULSE 71; RESP 16; TEMP 37.2; O2SAT 96
[2023-07-26] MEDS: ACETAMINOPHEN 325 MG TABLET 650 MG PO (05:36)
--- NOTE | 2023-07-26 06:16 | P.PNOB_ITS ---
OB - PN: Subj Subjective Date/time seen: 07/26/23 06:16 Patient comments: no complaints and pain well controlled baby status: doing well OB - PN: Obj Data Labs 07/25/23 19:00 07/25/23 19:00 Labs: Laboratory Results - last 24 hr 07/25/23 07/25/23 12:10 19:00 WBC 10.2 H 19.7 H RBC 4.23 3.94 L Hgb 12.1 11.1 L Hct 37.0 35.2 L MCV 87.5 89.3 MCH 28.6 28.2 MCHC 32.7 31.5 L RDW 14.1 14.0 Plt Count 310 334 MPV 9.7 10.3 Immature Gran % (Auto) 0.4 0.4 Neut % (Auto) 72.3 89.6 H Lymph % (Auto) 18.1 L 5.7 L [place] % (Auto) 8.0 4.1 Eos % (Auto) 1.0 0.0 Baso % (Auto) 0.2 0.2 Lymph # (Auto) 1.84 1.12 [place] # (Auto) 0.8 H 0.8 H Eos # (Auto) 0.1 0.0 Baso # (Auto) 0.0 0.0 Abs Immat Gran (auto) 0.04 H 0.08 H Absolute Neuts (auto) 7.4 H 17.7 H Absolute Nucleated RBC 0.0 0.0 Nucleated RBC % 0.0 0.0 PT 14.4 INR 1.1 APTT 25.5 Fibrinogen 463 D-Dimer 5.02 H Sodium 132 L Potassium 3.6 Chloride 106 Carbon Dioxide 20 L Anion Gap 6 L BUN 9 Creatinine 0.60 L Estim Creat Clear Calc 139 Estimated GFR > 60 Glucose 116 H Calcium 8.3 L Total Bilirubin 0.6 AST 28 ALT 14 Alkaline Phosphatase 231 H Total Protein 6.0 L Albumin 3.1 L Blood Type B Positive Antibody Screen Negative Crossmatch See Detail OB - PN A/P Plan day: 1 Plan: routine care Comments: await h/h Time Spent With Patient Time: Total time spent is greater than 50% in coordination of care (as documented) at patient's floor/unit and/or counseling patient: Exam Const: General: cooperative, healthy appearing and comfortable Nutritional Appearance: average body habitus Orientation/consciousness: oriented to person, oriented to place and oriented to time HENMT: Head: normal to inspection Resp: Effort & Inspection: normal respiratory effort Cardio: Rate: regular rate Rhythm: regular rhythm Heart sounds: S1 normal heart sound present and S2 normal heart sound present GI: Inspection: normal to inspection (fundus firm )
[2023-07-26 07:40] VITALS: BP 120/64; PULSE 71; RESP 16; TEMP 37.2; O2SAT 98
[2023-07-26 08:21] LABS: Basophils Percent Auto 0.3 % (0.2-1.2); Eosinophils Percent Auto 0.2 % (0-4.4); Hematocrit 30.4 % (37.0-47.0); Hemoglobin 9.8 g/dL (12.0-15.0); Immature Granulocyte Absolute 0.06 K/mm3 (0.00-0.031); Immature Granulocyte Percent A 0.4 % (0-0.5); Lymphocytes Absolute Auto 1.96 K/mm3 (0.9-3.2); Lymphocytes Percent Auto 14.4 % (18.3-44.2); Mean Corpuscular HGB Conc 32.2 g/dl (32-36); Mean Corpuscular Hemoglobin 28.5 pg (26-34); Mean Corpuscular Volume 88.4 fl (80-100); Monocytes Percent Auto 7.3 % (2.6-8.5); Neutrophils Absolute Auto 10.6 K/mm3 (1.3-6.7); Neutrophils Percent Auto 77.4 % (45.5-73.1); Platelet Count Result 304 k/mm3 (150-375); Red Blood Count 3.44 M/mm3 (4.2-5.4); Red Cell Distribution Width 13.9 % (11.5-14.5); White Blood Count 13.7 K/mm3 (4.5-10.0)
[2023-07-26] MEDS: IBUPROFEN 600 MG TABLET PO (10:05)
[2023-07-26] MEDS: MULTIVIT/MIN/PREN/FOL AC/IRON TABLET 1 TAB PO (10:05)
[2023-07-26] MEDS: DOCUSATE SODIUM 100 MG CAPSULE PO ×2 (10:06→16:12)
[2023-07-26] MEDS: POLYSACCHARIDE IRON COMPLEX 150 MG CAPSULE PO ×2 (10:06→16:13)
[2023-07-26 12:03] VITALS: BP 112/68; PULSE 78; RESP 16; TEMP 37.1; O2SAT 99
--- NOTE | 2023-07-26 12:12 | PM.DS ---
DS: Admitting Diagnosis Discharge Date 07/27/2023 Admitting Diagnosis term /positive group B strep DS: Discharge Diagnosis Discharge Diagnosis (1) GBS (group B Streptococcus carrier), +RV culture, currently : Code(s): O99.820 - Streptococcus B carrier state complicating Status: Acute (2) (normal spontaneous vaginal delivery): Code(s): O80 - Encounter for full-term uncomplicated delivery Status: Acute DS: Summary Hospital Course Reason for hospitalization: patient underwent spontaneous vaginal delivery with group B strep prophylaxis . She had 1 episode of heavy bleeding but her hemoglobin was stable day 1. She remained afebrile. Hospital Course: She was up, voiding without difficulty, ambulating, generally without complaints. Time Spent with Patient Time attestation: Total time spent providing and/or coordinating discharge services: Exam Const: General: cooperative, healthy appearing and comfortable Nutritional Appearance: average body habitus Orientation/consciousness: oriented to person, oriented to place and oriented to time Resp: Effort & Inspection: normal respiratory effort Cardio: Rate: regular rate Rhythm: regular rhythm Heart sounds: S1 normal heart sound present and S2 normal heart sound present GI: Inspection: normal to inspection ( Fundus firm below the umbilicus) DS: Data Data Completed and Pending Labs on day of discharge: Labs from last 24 hours 07/26/23 07/25/23 07/25/23 08:03 19:00 12:10 WBC 13.7 H 19.7 H 10.2 H RBC 3.44 L 3.94 L 4.23 Hgb 9.8 L 11.1 L 12.1 Hct 30.4 L 35.2 L 37.0 MCV 88.4 89.3 87.5 MCH 28.5 28.2 28.6 MCHC 32.2 31.5 L 32.7 RDW 13.9 14.0 14.1 Plt Count 304 334 310 MPV 10.0 10.3 9.7 Immature Gran % (Auto) 0.4 0.4 0.4 Neut % (Auto) 77.4 H 89.6 H 72.3 Lymph % (Auto) 14.4 L 5.7 L 18.1 L [place] % (Auto) 7.3 4.1 8.0 Eos % (Auto) 0.2 0.0 1.0 Baso % (Auto) 0.3 0.2 0.2 Lymph # (Auto) 1.96 1.12 1.84 [place] # (Auto) 1.0 H 0.8 H 0.8 H Eos # (Auto) 0.0 0.0 0.1 Baso # (Auto) 0.0 0.0 0.0 Abs Immat Gran (auto) 0.06 H 0.08 H 0.04 H Absolute Neuts (auto) 10.6 H 17.7 H 7.4 H Absolute Nucleated RBC 0.0 0.0 0.0 Nucleated RBC % 0.0 0.0 0.0 PT 14.4 INR 1.1 APTT 25.5 Fibrinogen 463 D-Dimer 5.02 H Sodium 132 L Potassium 3.6 Chloride 106 Carbon Dioxide 20 L Anion Gap 6 L BUN 9 Creatinine 0.60 L Estim Creat Clear Calc 139 Estimated GFR > 60 Glucose 116 H Calcium 8.3 L Total Bilirubin 0.6 AST 28 ALT 14 Alkaline Phosphatase 231 H Total Protein 6.0 L Albumin 3.1 L RPR Pending Blood Type B Positive Antibody Screen Negative Crossmatch See Detail Discharge Plan Discharge Attending physician on discharge: Lennox Weiss Discharging Clinician: Lennox Weiss Patient Disposition: Home, Self-Care Activity: pelvic rest Diet: regular Discharge Instructions: Call or return if temperature above 100.4? F, increased abdominal pain, increased vaginal bleeding or any new problems. 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
[2023-07-26 13:36] LABS: Rapid Plasma Reagin Non-Reactive (NonReactive)
[2023-07-26 16:13] VITALS: BP 120/64; PULSE 71; RESP 16; TEMP 37.2; O2SAT 98
[2023-07-26 19:40] VITALS: BP 125/48; PULSE 83; RESP 16; TEMP 36.8
--- NOTE | 2023-07-27 06:24 | PM.OBPNVD ---
OB - PN: Subj Subjective Date/time seen: 07/27/23 06:24 Patient comments: no complaints and pain well controlled baby status: doing well OB - PN: Obj Data Labs 07/26/23 08:03 07/25/23 19:00 Labs: Laboratory Results - last 24 hr 07/25/23 07/26/23 12:10 08:03 WBC 13.7 H RBC 3.44 L Hgb 9.8 L Hct 30.4 L MCV 88.4 MCH 28.5 MCHC 32.2 RDW 13.9 Plt Count 304 MPV 10.0 Immature Gran % (Auto) 0.4 Neut % (Auto) 77.4 H Lymph % (Auto) 14.4 L [place] % (Auto) 7.3 Eos % (Auto) 0.2 Baso % (Auto) 0.3 Lymph # (Auto) 1.96 [place] # (Auto) 1.0 H Eos # (Auto) 0.0 Baso # (Auto) 0.0 Abs Immat Gran (auto) 0.06 H Absolute Neuts (auto) 10.6 H Absolute Nucleated RBC 0.0 Nucleated RBC % 0.0 RPR Non-reactive Crossmatch See Detail OB - PN A/P Plan day: 2 Plan: routine care, discharge home and follow up 6 weeks Time Spent With Patient Time: Total time spent is greater than 50% in coordination of care (as documented) at patient's floor/unit and/or counseling patient: Time with patient: less than 15 minutes Exam Const: General: cooperative, healthy appearing and comfortable Nutritional Appearance: average body habitus Orientation/consciousness: oriented to person, oriented to place and oriented to time Resp: Effort & Inspection: normal respiratory effort Cardio: Rate: regular rate Rhythm: regular rhythm Heart sounds: S1 normal heart sound present and S2 normal heart sound present GI: Inspection: normal to inspection
[2023-07-27 07:40] VITALS: BP 122/62; PULSE 73; RESP 16; TEMP 37.3; O2SAT 99
[2023-07-27] MEDS: POLYSACCHARIDE IRON COMPLEX 150 MG CAPSULE PO (09:03)
[2023-07-27] MEDS: DOCUSATE SODIUM 100 MG CAPSULE PO (09:03)
--- NOTE | 2023-07-27 14:31 | PC.NURSE ---
1140 Patient viewed the discharge video Mother & Baby Care, The First Two Weeks . Patient was given the opportunity and encouraged to ask questions. Patient verbalized understanding of information shared and has been given the mother/baby guide for home reference.
[2023-07-28 15:36] VITALS: BP 127/71; PULSE 94; RESP 18; TEMP 37.3; O2SAT 99
== END 2023-07-27 11:40 | disposition home or self-care (01) | DRG 807 ==
LOC: ANHLDR 15:32 → ANHOB2 07-26 00:28
PROVIDERS: Obstetrics & Gynecology; Admitting Provider Obstetrics & Gynecology; Visit Provider Obstetrics & Gynecology
DX: O99.824 Streptococcus B carrier state complicating childbirth (principal); Z37.0 Single live birth; O71.82 Other specified trauma to perineum and vulva; O67.8 Other intrapartum hemorrhage; O72.1 Other immediate postpartum hemorrhage; Z3A.40 40 weeks gestation of pregnancy
CPT/HCPCS: 36415; 80053; 85025; 85380; 85384; 85610; 85730; 86592; 86850; 86900; 86901; 86923; A9270; J0690; J2210; J2405; J2590; J2795; J3010; J7120

== ENCOUNTER 2024-07-09 14:36 | Emergency (ER) | payer OTHER, SELFPAY ==
[2024-07-09 15:16] VITALS: BP 117/81; PULSE 66; RESP 16; TEMP 36.5; O2SAT 99
--- NOTE | 2024-07-09 16:28 | ED.DENTAL ---
HPI - Dental/Oral General Chief complaint: Dental/Oral Stated complaint: Infected Tooth Time Seen by Provider: 07/09/24 15:47 Source: patient and RN notes reviewed Mode of arrival: ambulatory Limitations: no limitations History of Present Illness HPI Narrative: Patient presents today complaining of tooth pain x3 days, worse today in the right lower drum. Currently rates her pain 8/10 and has tried Tylenol and ibuprofen as well as Orajel without relief. She does have a dentist and will call them tomorrow to schedule an appointment. The painful tooth had a previous root canal and currently has a crown. Denies fever, shortness of breath, difficulty swallowing. Related Data Allergies Allergy/AdvReac Type Severity Reaction Status Date / Time Penicillins Allergy Unknown HIVES Verified 07/09/24 15:25 Review of Systems Review of Systems: CONSTITUTIONAL: Denies body aches, fever, chills, or sweats. EYES: Denies visual changes, redness, or discharge. ENT: Denies rhinorrhea, congestion, sore throat, or otalgia.+ tooth pain CARDIOVASCULAR: Denies chest pain, palpitations, or edema. RESPIRATORY: Denies cough or dyspnea. GASTROINTESTINAL: Denies abdominal pain, nausea, vomiting, or diarrhea. GENITOURINARY: Denies dysuria or hematuria. SKIN: Denies rash, itching, or wounds. MUSCULOSKELETAL: Denies back pain, joint pain, or myalgia. NEUROLOGIC: Denies headache, numbness, tingling, or weakness. PSYCH: Denies depression or anxiety. [facility] Past Medical History Medical History Anxiety Asthma due to environmental allergies Hypothyroid UTI (urinary tract infection) Surgical History Surgical History History of dilatation and curettage Family History Family History Grandparent Diabetes mellitus Bone cancer Carcinoid tumor of stomach Grandparent Cataract Social History Social History Smoking status: Never smoker Second hand tobacco smoke exposure: No Alcohol intake: current Substance use: never Lack of Transportation: No Lack of Food: Never True Current Housing: I Have Housing Concerned About Future Housing: No Difficulty Paying Gas/Electric Bills: No Difficulty Paying for Meds: No Currently Unemployed: No Education: Associate Degree Difficulty w/ Childcare or Family Care: No Living arrangements: with family Gender identity (if verbalized by the patient): Female Spiritual care concerns: No Comments At time of signature, I have reviewed and agree with nursing past medical, surgical, social and family history unless otherwise noted. Please see nursing chart for further information. There is no relevant family history pertinent to the presenting complaint Exam Narrative: GENERAL: Well-appearing, well-nourished, and in no acute distress. HEAD: Normocephalic, atraumatic. EYES: EOMI. No redness or drainage. Conjunctivae normal. ENT: Mucous membranes pink and moist. Pain to tooth 14. No surrounding erythema, edema, obvious periapical abscess. No facial swelling noted. No trismus or sublingual tenderness. NECK: Normal AROM. CHEST: No respiratory distress. SKIN: Warm, dry, no rash. Capillary refill normal. Normal skin turgor. NEURO: No focal deficits. Alert and oriented x3. Gait steady. PSYCH: Normal affect. No signs of depression or anxiety. Course Course Level of Care: Express Care Visit Vital Signs Vital signs: Vital Signs Temperature 97.7 F 07/09/24 15:16 Pulse Rate 66 07/09/24 15:16 Respiratory Rate 16 07/09/24 15:16 Blood Pressure 117/81 07/09/24 15:16 Pulse Oximetry 99 07/09/24 15:16 Temperature 97.7 F 07/09/24 15:16 Pulse Rate 66 07/09/24 15:16 Respiratory Rate 16 07/09/24 15:16 Blood Pressu
== END 2024-07-09 16:02 | disposition home or self-care (01) ==
PROVIDERS: Emergency Provider Nurse Practitioner
DX: K08.89 Other specified disorders of teeth and supporting structures (principal); E03.9 Hypothyroidism, unspecified
CPT/HCPCS: 99213; G0463